=== PATIENT | female | born 1945 | race Asian ===

== ENCOUNTER 2020-09-18 12:41 | Inpatient (IN) | payer OTHER ==
[~2020-09-18] VITALS: Ht 149.9 cm; Wt 73.0 kg
[2020-09-18] MEDS ORDERED: nitroGLYCERIN 0.4mg SUBLingual tab SL PRN ×2 (13:05→15:10)
[2020-09-18 13:57] LABS: BASOPHILS % (AUTO) 0.5 % (0-1); EOSINOPHILS # (AUTO) 0.1 X10'3 (0-0.9); EOSINOPHILS % (AUTO) 0.7 % (0-6); HEMATOCRIT 41.5 % (35.0-45.0); HEMOGLOBIN 13.6 g/dl (12.0-16.0); LYMPHOCYTES # (AUTO) 3.2 X10'3 (1.1-4.8); LYMPHOCYTES % (AUTO) 34.6 % (21-51); MEAN CORPUSCULAR HEMOGLOBIN 28.6 PG (27.0-31.0); MEAN CORPUSCULAR HGB CONC 32.8 g/dL (33.0-36.5); MEAN CORPUSCULAR VOLUME 87.4 FL (78-98); MEAN PLATELET VOLUME 8.3 FL (7.4-10.4); MONOCYTES # (AUTO) 0.4 X10'3 (0-0.9); MONOCYTES % (AUTO) 4.8 % (2-12); NEUTROPHILS # (AUTO) 5.5 X10'3 (1.8-7.7); NEUTROPHILS % (AUTO) 59.4 % (42-75); PLATELET COUNT 288 X10'3 (140-440); RED BLOOD COUNT 4.74 X10'6 (4.20-5.60); RED CELL DISTRIBUTION WIDTH 13.3 % (11.5-14.5); WHITE BLOOD COUNT 9.2 X10'3 (4.5-11.0)
[2020-09-18 14:10] LABS: ALANINE AMINOTRANSFERASE 31 U/L (12-78); ALBUMIN 3.7 G/DL (3.4-5.0); ALBUMIN/GLOBULIN RATIO 0.9 (1.1-1.5); ALKALINE PHOSPHATASE 110 IU/L (46-116); ANION GAP 11 (8-16); ASPARTATE AMINO TRANSFERASE 19 U/L (10-37); BILIRUBIN,TOTAL 0.2 MG/DL (0.1-1.0); BLOOD UREA NITROGEN 12 MG/DL (7-18); CALCIUM 9.1 MG/DL (8.5-10.1); CHLORIDE 107 MMOL/L (99-107); CREATININE 0.75 MG/DL (0.40-0.90); GLUCOSE 98 MG/DL (70-104); POTASSIUM 4.1 MMOL/L (3.5-5.1); SODIUM 143 MMOL/L (135-145); TOTAL CARBON DIOXIDE 25.5 MMOL/L (24-32); TOTAL PROTEIN 7.9 G/DL (6.4-8.2); eGFR 76 ML/MIN
[2020-09-18] MEDS ORDERED: magnesium Cl slow-release 64mg tablet PO PRN (15:00)
[2020-09-18] MEDS ORDERED: magnesium 4gm in 100ml NS 100 ML IV PRN (15:00)
[2020-09-18] MEDS ORDERED: ondansetron/PF 4mg/2ml inj IV PRN (15:00)
[2020-09-18] MEDS ORDERED: potassium Cl 40MEQ/1/2NS 520ml 520 ML IV PRN ×2 (15:00)
[2020-09-18] MEDS ORDERED: potassium Cl 20 mEq SR tablet PO PRN ×2 (15:00)
[2020-09-18] MEDS ORDERED: PERFLUTREN PROTEIN-A MICROSPHR (Optison) 0.22 MG/ML 3ML VIAL IV ONE (15:00)
[2020-09-18] MEDS ORDERED: acetaminophen 325mg tablet PO PRN (15:00)
[2020-09-18] MEDS ORDERED: magnesium 2GM in 50ml NS 50 ML IV PRN (15:00)
[2020-09-18] MEDS ORDERED: NO HOME MEDS (15:09)
[2020-09-18] MEDS ORDERED: aminophylline 250mg/10ml inj. IV PRN (15:10)
[2020-09-18] MEDS ORDERED: regadenoson 0.4mg/5ml syringe IV ONE (15:10)
[2020-09-18] MEDS ORDERED: metoprolol tartrate 1mg/ml inj IV PRN (15:10)
[2020-09-18] MEDS: K and/or MAG REPLACEMENT MC SCH (20:00)
--- NOTE | 2020-09-18 22:30 | NUR ---
Daughter Andrés to call when admit bed available: [phone]
[2020-09-19] VITALS (14 sets, daily range): BP systolic 151–196; BP diastolic 54–101
[2020-09-19 02:12] LABS: BASOPHILS # (AUTO) 0.1 X10'3 (0-0.2); BASOPHILS % (AUTO) 0.4 % (0-1); EOSINOPHILS # (AUTO) 0.2 X10'3 (0-0.9); EOSINOPHILS % (AUTO) 1.5 % (0-6); HEMATOCRIT 40.4 % (35.0-45.0); HEMOGLOBIN 13.5 g/dl (12.0-16.0); LYMPHOCYTES # (AUTO) 5.6 X10'3 (1.1-4.8); LYMPHOCYTES % (AUTO) 48.3 % (21-51); MEAN CORPUSCULAR HEMOGLOBIN 28.6 PG (27.0-31.0); MEAN CORPUSCULAR HGB CONC 33.5 g/dL (33.0-36.5); MEAN CORPUSCULAR VOLUME 85.4 FL (78-98); MEAN PLATELET VOLUME 8.2 FL (7.4-10.4); MONOCYTES # (AUTO) 0.6 X10'3 (0-0.9); MONOCYTES % (AUTO) 5.6 % (2-12); NEUTROPHILS # (AUTO) 5.1 X10'3 (1.8-7.7); NEUTROPHILS % (AUTO) 44.2 % (42-75); PLATELET COUNT 251 X10'3 (140-440); RED BLOOD COUNT 4.73 X10'6 (4.20-5.60); RED CELL DISTRIBUTION WIDTH 13.6 % (11.5-14.5); WHITE BLOOD COUNT 11.5 X10'3 (4.5-11.0)
[2020-09-19 02:19] LABS: ALBUMIN 3.5 G/DL (3.4-5.0); ANION GAP 8 (8-16); BLOOD UREA NITROGEN 13 MG/DL (7-18); BUN/CREATININE RATIO 17.1 (6.6-38.0); CALCIUM 8.7 MG/DL (8.5-10.1); CHLORIDE 108 MMOL/L (99-107); CHOL/HDL RATIO 5.3 (0.00-4.99); CHOLESTEROL 254 MG/DL (0-200); CREATININE 0.76 MG/DL (0.40-0.90); GLUCOSE 96 MG/DL (70-104); HDL CHOLESTEROL 48 MG/DL (35-60); LDL CHOLESTEROL 156 MG/DL (50-100); MAGNESIUM 2.3 MG/DL (1.5-2.4); POTASSIUM 4.1 MMOL/L (3.5-5.1); SODIUM 142 MMOL/L (135-145); TOTAL CARBON DIOXIDE 26.4 MMOL/L (24-32); TRIGLYCERIDES 173 MG/DL (20-135); eGFR 75 ML/MIN
[2020-09-19] MEDS ORDERED: lisinopril 5mg tablet PO SCH (08:00)
[2020-09-19] MEDS: K and/or MAG REPLACEMENT MC SCH (08:00)
[2020-09-19] MEDS ORDERED: lisinopril 10 MG tablet PO SCH (08:36)
[2020-09-19] MEDS ORDERED: metoprolol succinate 25mg (24-HOUR) SR. Tablet PO SCH (11:45)
[2020-09-19] MEDS ORDERED: METO-395 PO (13:24)
[2020-09-19] MEDS ORDERED: LISI10TA27 PO (13:25)
[2020-09-19] MEDS ORDERED: hydrALAZINE 20mg/ml inj. IV SCH (14:00)
== END 2020-09-19 16:45 | disposition home or self-care (01) | DRG 311 ==
LOC: ER 12:41 → ED HOLD 14:59 → PCU 3S 09-19 08:03
PROVIDERS: ADMIT Internal Medicine; ATTEND Internal Medicine
PROC: 4A02XM4 Measurement of Cardiac Total Activity, External Approach (ICD-10-PCS; principal; 2020-09-19)
PROC: 3E033HZ Introduction of Radioactive Substance into Peripheral Vein, Percutaneous Approach (ICD-10-PCS; 2020-09-19)
DX: I20.0 Unstable angina (principal); E78.00 Pure hypercholesterolemia, unspecified; E78.5 Hyperlipidemia, unspecified; I10 Essential (primary) hypertension; I16.0 Hypertensive urgency; Z82.49 Family history of ischemic heart disease and other diseases of the circulatory system
CPT/HCPCS: 36415; 71045; 78452; 80048; 80053; 80061; 83735; 83880; 84484; 85025; 93005; 93017; 93306; 99285; A9500; G0378; J0280; J0360; J2785